=== PATIENT | female | born 1955 | race African-American/Black ===

== ENCOUNTER 2021-04-07 13:27 | Observation (INO) | payer BC ==
[~2021-04-07] VITALS: Ht 121.9 cm; Wt 83.0 kg
--- NOTE | 2021-04-07 13:30 | NUR ---
TO ROOM VIA EMS
--- NOTE | 2021-04-07 13:40 | NUR ---
PATIENT DOES NOT KNOW ALL OF HER HOME MEDICATIONS AT THIS ITIN.
[2021-04-07 13:56] LABS: HEMATOCRIT 42.1 % (37.0-47.0); HEMOGLOBIN 13.1 g/dl (12.0-16.0); IMMATURE GRANULOCYTES 0.3 % (0.0-5.0); MEAN CELL VOLUME 82.1 fL CALC (80.0-100.0); MEAN CORPUSCULAR HGB 25.5 pG CALC (26.0-32.0); MEAN CORPUSCULAR HGB CONC 31.1 g/dL CAL (32.0-36.0); NEUT# 3.73 thou/uL (2.00-7.15); RED BLOOD COUNT 5.13 mill/uL (4.20-5.60); RED CELL DISTRI WIDTH 14.8 % (11.5-15.5)
[2021-04-07 14:59] LABS: ALBUMIN 3.7 g/dL (3.2-5.0); ALKALINE PHOSPHATASE 92 u/l (38-126); ANION GAP 8 (6-22 (CALC)); BILIRUBIN, TOTAL 0.7 mg/dL (0.0-1.4); BUN 23 mg/dL (8-23); BUN/CREATININE RATIO 16 (12-20 (CALC)); CARBON DIOXIDE 28 mmol/l (22-30); CHLORIDE 107 mmol/l (95-108); CREATININE 1.5 mg/dL (0.5-1.0); GFR 35 ML/MIN (>=60 (CALC)); GFR FOR AFR.AMER. 42 ML/MIN (>=60 (CALC)); LIPASE 205 u/l (23-300); POTASSIUM 3.7 mmol/l (3.5-5.1); SGOT/AST 22 u/l (9-36); SODIUM 140 mmol/l (137-146); TOTAL PROTEIN 7.3 g/dL (6.3-8.2)
[2021-04-07] MEDS ORDERED: CARVEDILOL6.25 MG PO (16:10)
[2021-04-07] MEDS ORDERED: NOVOLOG FLEX SC (16:10)
[2021-04-07] MEDS ORDERED: FIORICET 50-3001 CAP PO (16:11)
[2021-04-07] MEDS ORDERED: CRESTOR20 MG PO (16:11)
[2021-04-07] MEDS ORDERED: LISINOPRIL20 MG PO (16:11)
[2021-04-07] MEDS ORDERED: LANTUS SOL100 UNIT/M SC (16:12)
[2021-04-07] MEDS ORDERED: MONTELUKAST SOD10 MG PO (16:12)
--- NOTE | 2021-04-07 18:14 | NUR ---
RECIEVED REPORT FROM CLEO JAIN
--- NOTE | 2021-04-07 18:14 | NUR ---
REPORT CALLED TO FRED
--- NOTE | 2021-04-07 18:44 | NUR ---
PT ARRIVED TO [facility] ROOM 280 VIA WHEELCHAIR IN STABLE CONDITION. PT SITTING ON SIDE OF BED. RESPIRATIONS ARE EVEN AND UNLABORED WITH NO DISTRESS NOTED. PT ORIENTED TO ROOM AND CALL SYSTEM. DIETARY CALED FOR TRAY. PT DENIES OF ANY ADDITOINAL NEEDS. ALL SAEFTY PRECAUTIONS ARE IN PLACE WITHC ALL LIGHT IN EACH. WILL CONTINUE TO MONITOR.
--- NOTE | 2021-04-07 18:45 | NUR ---
Admission Note Report Given to: Transported by: X Wheelchair Stretcher Transported with: X Nurse Transporter X Patent IV O2 X Lime Trimmer Location: ICU X MS2
[2021-04-07 19:00] VITALS: BP 184/95
--- NOTE | 2021-04-07 19:05 | NUR ---
REPORT RECEIVED FROM Kenton CONSTANTINO LPN
--- NOTE | 2021-04-07 19:15 | NUR ---
PATIENT ARRIVED ON FLOOR PRIOR TO WRITTER AND PRIOT TO REPORT. PATIENT ALERT AND ORIETED X 3. CLEAR LUNG SOUNDS. SR ST HR. LAST REPORTED BOWEL MOVEMENT 04/07/21. ACTIVE BOWEL SOUNDS. NO OTHER COMPLAINTS. #20 G IN THE LEFT WRIST SALINE LOCK, ORDER FOR NORMAL SALINE AT 100ML/HR, BUT NOT ABLE TO OBTAIN FROM [facility]. PLAN OF CARE REVIEWED, PATIENT ORIENTED TO CALL LIGHT, CALL LIGHT AND BEDSIDE TABLE WITHIN REACH.
[2021-04-08] VITALS: BP 157/80
--- NOTE | 2021-04-08 00:30 | NUR ---
PATIENT SLEEPING SOUNDLY, AWOKEN BY WRITTER. DENIES ANY FURTHER NEEDS. CALL LIGHT AND BEDSIDE TABLE WITHIN REACH.
--- NOTE | 2021-04-08 03:15 | NUR ---
IV FLUIDS HUNG AT THIS TIME, ERROR WITH EMAR, UNABLE TO ADMINISTER UNTIL THIS MORNING.
--- NOTE | 2021-04-08 03:22 | NUR ---
PATIENT DENIES ANY PAIN AT THIS TIME, PATIENT DENIES ANY FURTHER NEEDS AT THIS TIME.
[2021-04-08 04:00] VITALS: BP 138/74
[2021-04-08 06:35] LABS: HEMATOCRIT 41.7 % (37.0-47.0); HEMOGLOBIN 12.7 g/dl (12.0-16.0); MEAN CELL VOLUME 83.6 fL CALC (80.0-100.0); MEAN CORPUSCULAR HGB 25.5 pG CALC (26.0-32.0); MEAN CORPUSCULAR HGB CONC 30.5 g/dL CAL (32.0-36.0); RED BLOOD COUNT 4.99 mill/uL (4.20-5.60); RED CELL DISTRI WIDTH 14.7 % (11.5-15.5)
[2021-04-08 06:39] LABS: ANION GAP 10 (6-22 (CALC)); BUN 23 mg/dL (8-23); BUN/CREATININE RATIO 23 (12-20 (CALC)); CALCULATED LDLCHOLESTEROL 84 mg/dL (62-129 (CALC)); CARBON DIOXIDE 24 mmol/l (22-30); CHLORIDE 107 mmol/l (95-108); CHOLESTEROL HDL RATIO 5.4 (<4.4 (CALC)); GFR 56 ML/MIN (>=60 (CALC)); GFR FOR AFR.AMER. > 60 ML/MIN (>=60 (CALC)); HDL CHOLESTEROL 27 mg/dL (>=40); MAGNESIUM 1.8 mg/dL (1.6-2.3); POTASSIUM 4.1 mmol/l (3.5-5.1); SODIUM 136 mmol/l (137-146); TOTAL CHOLESTEROL 149 mg/dl (0-199); TOTAL TRIGLYCERIDES 189 mg/dl (30-149); VLDL CHOLESTROL 38 mg/dl (1-41 (CALC))
[2021-04-08 08:00] VITALS: BP 163/80
--- NOTE | 2021-04-08 08:00 | NUR ---
BEDSIDE RE[PRT RECEIVED, PT AWAKE SITTING ON SIDE OF BED IV IN HAND, PT STATED IT CAME OUT. IV SITE COVERED. Nelida NOBLES NOTIFIED NO FURTHER COMPLAINTS, WILL CONTINUE TO MONITOR.
[2021-04-08 11:28] VITALS: BP 174/93
[2021-04-08 11:45] VITALS: BP 200/100
--- NOTE | 2021-04-08 12:00 | NUR ---
FAN MAIL CLERK REPORTED PT BP 174/90. SN CHECKED MANUALLY 200/100 D CARTEE NOITIFIED, MEDICATION ORDER SUBMITTED. WILL RECHECK IN ONE HOUR. PT OK TO GO HOME IF DECREASES AFTER PRN MEDICAITON ADMIN
[2021-04-08 12:11] VITALS: BP 200/100
--- NOTE | 2021-04-08 13:23 | NUR ---
Discharge instructions given. Patient verbalizes understanding of same. Discharged in good condition via Wheelchair to Home with family. All belongings sent with pt. Patient's BP at this time after a dose of Catapres was @ 177/80 P 80. 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
== END 2021-04-08 13:35 | disposition home or self-care (01) | DRG 312 ==
LOC: ED 13:27 → ED-I 14:59 → ED 14:59 → ED-I 15:33 → ED 16:09 → MS2 16:10
PROVIDERS: Nurse Practitioner; ADMIT Internal Medicine; ATTEND Internal Medicine
DX: I95.1 Orthostatic hypotension (principal); N17.9 Acute kidney failure, unspecified; E86.0 Dehydration; I10 Essential (primary) hypertension; E11.9 Type 2 diabetes mellitus without complications; J45.909 Unspecified asthma, uncomplicated; E78.5 Hyperlipidemia, unspecified; G47.30 Sleep apnea, unspecified; Z79.4 Long term (current) use of insulin; Z20.822 Contact with and (suspected) exposure to COVID-19
CPT/HCPCS: G0378; J1650